=== PATIENT | male | born 1950 | race Caucasian/White ===

== ENCOUNTER → 2020-10-15 | Outpatient (CLI) | payer MEDICARE, SELFPAY ==
[~2020-10-15] MED LIST: TYLENOL325 MG PO
== END ==
LOC: KOH-I 11:17
DX: H34.232 Retinal artery branch occlusion, left eye (principal)
CPT/HCPCS: 70450; 93880

== ENCOUNTER → 2021-05-06 | Outpatient (CLI) | payer MEDICARE | LOC: HEART 5 11:01 | DX: J44.9 Chronic obstructive pulmonary disease, unspecified (principal) | CPT/HCPCS: 94010 ==